=== PATIENT | female | born 1980 | race Caucasian/White ===

== ENCOUNTER 2017-02-22 16:00 | Outpatient (CLI) | payer OTHER ==
[2017-02-22 17:23] LABS: RUPTURE FETAL MEMBRANES NEGATIVE (NEGATIVE)
[2017-02-22 17:41] LABS: ADD UMIC NO; UR ASCORBIC ACID NEGATIVE (NEGATIVE); UR BILIRUBIN (Dip) NEGATIVE (NEGATIVE); UR BLOOD (Dip) NEGATIVE (NEGATIVE); UR CLARITY CLEAR (CLEAR); UR COLOR YELLOW (YELLOW); UR GLUCOSE (Dip) NEGATIVE (NEGATIVE); UR KETONES (Dip) NEGATIVE (NEGATIVE); UR LEUKOCYTE ESTERASE (Dip) NEGATIVE Leu/ul (NEGATIVE); UR NITRITE (Dip) NEGATIVE (NEGATIVE); UR SPECIFIC GRAVITY (Dip) 1.023 (1.003-1.030); UR TOTAL PROTEIN (Dip) NEGATIVE (NEGATIVE); UR UROBILINOGEN (Dip) NEGATIVE (NEGATIVE)
== END 2017-02-22 17:58 | disposition home or self-care (01) ==
LOC: OBT 16:00 → L-D 16:02 → OBT 17:58
DX: O62.9 Abnormality of forces of labor, unspecified (principal); Z3A.28 28 weeks gestation of pregnancy
CPT/HCPCS: 76815; 76817; 76818; 81003; 82731; 84112

== ENCOUNTER 2017-04-29 00:40 | Inpatient (IN) | payer OTHER ==
[2017-04-29] MEDS: LIDOCAINE 1% (MPF) 30 ML INJ INJ (00:54)
[2017-04-29] MEDS: OXYTOCIN 30 UNITS/LR 500 ML IVPB (00:54)
[2017-04-29] MEDS ORDERED: LACTATED RINGER'S 1,000 ML IV (01:05)
[2017-04-29] MEDS ORDERED: IBUPROFEN 600 MG TAB PO (01:30)
[2017-04-29] MEDS ORDERED: BUTORPHANOL 2 MG INJ IV (01:30)
[2017-04-29] MEDS ORDERED: METHYLERGONOVINE 0.2 MG INJ IM (01:30)
[2017-04-29] MEDS ORDERED: MISOPROSTOL 200 MCG TAB PR ×2 (01:30→02:30)
[2017-04-29] MEDS ORDERED: CARBOPROST 250 MCG INJ IM ×2 (01:30→02:30)
[2017-04-29] MEDS ORDERED: OXYTOCIN 30 UNITS/LR 500 ML IV ×2 (01:30→02:30)
[2017-04-29 01:38] LABS: ADD MAN DIFF? NO
[2017-04-29 01:42] LABS: BASOPHILS % 0.3 % (0.0-2.0); EOSINOPHILS # 0.1 10^3/ul (0.0-0.5); EOSINOPHILS % 0.6 % (0.0-7.0); HEMATOCRIT 31.6 % (37.0-47.0); HEMOGLOBIN 10.8 g/dl (12.0-16.0); LYMPHOCYTES # 1.6 10^3/ul (0.8-2.9); LYMPHOCYTES % 18.1 % (15.0-51.0); MEAN CORPUSCULAR HEMOGLOBIN 29.9 pg (29.0-33.0); MEAN CORPUSCULAR HGB CONC 34.2 g/dl (32.0-37.0); MEAN CORPUSCULAR VOLUME 87.5 fl (82.0-101.0); MONOCYTE # 0.5 10^3/ul (0.3-0.9); NEUTROPHIL # 6.7 10^3/ul (1.6-7.5); NEUTROPHILS % 74.2 % (39.0-77.0); PLATELET COUNT 222 10^3/UL (140-415); RED BLOOD COUNT 3.61 10^6/ul (4.20-5.40); RED CELL DISTRIBUTION WIDTH 12.4 % (11.5-14.5)
[2017-04-29 01:42] LABS: WHITE BLOOD COUNT 9.1 10^3/ul (4.8-10.8)
[2017-04-29] MEDS: OXYTOCIN 30 UNITS/LR 500 ML IV (02:15)
[2017-04-29 02:16] LABS: INR 0.84; PROTIME 11.6 Sec (11.9-14.9); PT RATIO 0.9
[2017-04-29 02:17] LABS: PARTIAL THROMBOPLASTIN TIME 26.4 Sec (25.0-35.0)
[2017-04-29] MEDS ORDERED: HYDROCODONE/APAP (5/325) TAB PO (02:30)
[2017-04-29] MEDS ORDERED: ZOLPIDEM 5 MG TAB PO (02:30)
[2017-04-29] MEDS ORDERED: ONDANSETRON 4 MG INJ IV (02:30)
[2017-04-29] MEDS ORDERED: ACETAMINOPHEN 325 MG TAB PO (02:30)
[2017-04-29] MEDS ORDERED: DIPHENHYDRAMINE 25 MG CAP PO (02:30)
[2017-04-29] MEDS: IBUPROFEN 600 MG TAB PO ×4 (06:00→23:28)
[2017-04-29] MEDS: WITCH HAZEL/GLYCERIN PAD PR (06:14)
[2017-04-29] MEDS: LANOLIN 7 GM TUBE TOP (06:14)
[2017-04-29] MEDS: SERTRALINE 50 MG TAB PO (09:31)
[2017-04-29] MEDS: FERROUS SULFATE (EC) 325 MG TAB PO ×2 (09:31→21:34)
[2017-04-29] MEDS: SENNA/DOCUSATE NA (8.6MG/50MG) TAB PO ×2 (09:32→21:34)
[2017-04-29 13:19] LABS: HEPATITIS B SURFACE ANTIGEN NEGATIVE (NEGATIVE)
[2017-04-29 21:39] LABS: RAPID PLASMA REAGIN NONREACTIVE (NR)
[2017-04-30] MEDS: IBUPROFEN 600 MG TAB PO ×4 (05:14→23:31)
[2017-04-30] MEDS: SERTRALINE 50 MG TAB PO (09:00)
[2017-04-30] MEDS: SENNA/DOCUSATE NA (8.6MG/50MG) TAB PO ×2 (09:00→20:49)
[2017-04-30] MEDS: FERROUS SULFATE (EC) 325 MG TAB PO ×2 (09:00→20:49)
[2017-04-30 10:27] LABS: ADD MAN DIFF? NO
[2017-04-30 10:38] LABS: BASOPHILS % 0.3 % (0.0-2.0); EOSINOPHILS # 0.1 10^3/ul (0.0-0.5); EOSINOPHILS % 0.6 % (0.0-7.0); HEMATOCRIT 31.3 % (37.0-47.0); HEMOGLOBIN 10.4 g/dl (12.0-16.0); LYMPHOCYTES # 1.5 10^3/ul (0.8-2.9); LYMPHOCYTES % 12.7 % (15.0-51.0); MEAN CORPUSCULAR HEMOGLOBIN 29.8 pg (29.0-33.0); MEAN CORPUSCULAR HGB CONC 33.2 g/dl (32.0-37.0); MEAN CORPUSCULAR VOLUME 89.7 fl (82.0-101.0); MEAN PLATELET VOLUME 10.1 fl (7.4-10.4); MONOCYTE # 0.6 10^3/ul (0.3-0.9); MONOCYTES % 4.9 % (0.0-11.0); NEUTROPHIL # 9.5 10^3/ul (1.6-7.5); NEUTROPHILS % 80.7 % (39.0-77.0); PLATELET COUNT 227 10^3/UL (140-415); RED BLOOD COUNT 3.49 10^6/ul (4.20-5.40); RED CELL DISTRIBUTION WIDTH 12.5 % (11.5-14.5)
[2017-04-30 10:38] LABS: WHITE BLOOD COUNT 11.8 10^3/ul (4.8-10.8)
[2017-05-01] MEDS: IBUPROFEN 600 MG TAB PO ×2 (06:00→12:33)
[2017-05-01] MEDS: FERROUS SULFATE (EC) 325 MG TAB PO (10:00)
[2017-05-01] MEDS: SENNA/DOCUSATE NA (8.6MG/50MG) TAB PO (10:00)
[2017-05-01] MEDS: MEASLES,MUMPS,RUBELLA VACCINE INJ SC* (10:00)
[2017-05-01] MEDS: SERTRALINE 50 MG TAB PO (10:00)
[2017-05-01] MEDS: VARICELLA VACCINE LIVE/PF 1,350 UNIT/0.5 ML ML SC* (10:01)
[2017-05-01] MEDS: DIPHTH/TET/ACEL PERTUSS (ADULT) 0.5 ML VIAL IM* (12:34)
== END 2017-05-01 16:11 | disposition home or self-care (01) | DRG 775 ==
LOC: OBT 00:40 → L-D 00:40 → OBT 00:45 → L-D 00:45 → PP1 03:19
PROVIDERS: Obstetrics & Gynecology Obstetrics
PROC: 10E0XZZ Delivery of Products of Conception, External Approach (ICD-10-PCS; principal; 2017-04-29)
PROC: 0HQ9XZZ Repair Perineum Skin, External Approach (ICD-10-PCS; 2017-04-29)
DX: O70.0 First degree perineal laceration during delivery (principal); Z37.0 Single live birth; Z3A.37 37 weeks gestation of pregnancy
CPT/HCPCS: 85025; 85610; 85730; 86592; 86900; 86901; 87340